=== PATIENT | female | born 1965 | race Caucasian/White ===

== ENCOUNTER 2017-06-05 19:43 | Inpatient (IN) | payer BC ==
[~2017-06-05] VITALS: Ht 167.6 cm; Wt 67.8 kg
[2017-06-05 20:12] LABS: HEMATOCRIT 36.4 % (36.0-46.0); MCHC 35.2 G/DL (30.0-36.0); MCV 93.8 FL (83-99); MEAN PLAT.VOLUME 10.1 uM^3 (9.5-12.4); PLATELET COUNT 278 K/uL (156-360); RBC DIS.WIDTH-CV 12.3 % (11.8-14.6); RBC DIS.WIDTH-SD 42.7 % (39-53); RED BLOOD COUNT 3.88 M/uL (3.80-5.20); WHITE BLOOD COUNT 7.9 K/uL (4.1-10.2)
[2017-06-05 20:24] LABS: CHLORIDE 106 mEq/L (99-109); POTASSIUM 3.5 mEq/L (3.7-5.4); SODIUM 138 mEq/L (136-147)
[2017-06-05 20:26] LABS: GLUCOSE 92 mg/dL (70-99)
[2017-06-05 20:27] LABS: ANION GAP 6 MEQ/L (2-14)
[2017-06-05 20:30] LABS: GFR ESTIMATE (CALCULATED) > 59 mL/min/
[2017-06-05 20:31] LABS: UREA NITROGEN (BUN) 15 mg/dL (9-23)
[2017-06-05 23:39] LABS: SERUM ETHYL ALCOHOL < 10 mg/dL
[2017-06-05 23:43] LABS: SALICYLATE < 5.0 MG/DL (15-30)
[2017-06-06] VITALS (8 sets, daily range): BP systolic 106–121; BP diastolic 56–70
[2017-06-06 01:29] LABS: ADD MIUA? YES; BILIRUBIN NEGATIVE; BLOOD NEGATIVE; COLOR YELLOW ((YELLOW)); GLUCOSE (STRIP) NEGATIVE; KETONES NEGATIVE; LEUKOCYTES TRACE; NITRITE NEGATIVE; PROTEIN (STRIP) NEGATIVE; SPECIFIC GRAVITY 1.024 (1.000-1.030); UROBILINOGEN 0.2 MG/DL (0.2-1.0)
[2017-06-06 01:31] LABS: BACTERIA RARE /HPF; EPITHELIAL CELLS RARE /HPF; MUCUS 2+ /LPF; RED BLOOD CELLS 0-5 /HPF (0-5); UCUL ADDED? NO; WHITE BLOOD CELLS 0-5 /HPF (0-5)
[2017-06-06 01:37] LABS: AMPHETAMINE PRESUMPTIVE POSITIVE (500 ng/mL); BARBITURATES NEGATIVE (200 ng/mL); BENZODIAZEPINES NEGATIVE (150 ng/mL); COCAINE NEGATIVE (150 ng/mL); INTERNAL CONTROLS VALID? YES; METHADONE NEGATIVE (200 ng/mL); METHAMPHETAMINE NEGATIVE (500 ng/mL); OPIATES (MORPHINE) NEGATIVE (100 ng/mL); OXYCODONE NEGATIVE (100 ng/mL); PHENCYCLIDINE NEGATIVE (25 ng/mL); PROPOXYPHENE NEGATIVE (300 ng/mL); THC CANNABINOIDS NEGATIVE (50 ng/mL); TRICYCLIC ANTIDEPRESSANTS NEGATIVE (300 ng/mL)
[2017-06-06 01:38] LABS: ADD MEDTOX COMMENT Y
[2017-06-06 12:48] LABS: Estimated Average Glucose 108 mg/dL (70-123); HEMOGLOBIN A1c (GLYCOHEMOGLOB) 5.4 % HGB (Below 5.7)
[2017-06-06 13:30] LABS: HDL CHOLESTEROL 57 MG/DL (Desirable>=50); LDL CHOLESTEROL 74 mg/dL (Desirable<100); NON-HDL CHOLESTEROL 89 mg/dL (Desirable<160); TOTAL CHOLESTEROL 146 mg/dL (Desirable<200); TRIGLYCERIDES 73 MG/DL (Normal: <150)
[2017-06-06] MEDS ORDERED: RIZATRIPTAN10 MG PO (16:37)
[2017-06-06] MEDS ORDERED: VYVANSE70 MG PO (16:38)
[2017-06-06] MEDS ORDERED: VALACYCLOVIR500 MG PO (16:38)
[2017-06-06] MEDS ORDERED: BUPROPION HCL150 M2 PO (16:39)
[2017-06-06] MEDS ORDERED: buspar PO (16:42)
[2017-06-06] MEDS ORDERED: LEXAPRO20 MG PO (16:44)
[2017-06-06] MEDS ORDERED: INDOCIN25 MG PO (16:44)
[2017-06-06] MEDS ORDERED: ALYACEN1 EACH PO (16:45)
[2017-06-06] MEDS ORDERED: VITAMIN E400 UNIT PO (16:45)
[2017-06-06] MEDS ORDERED: ZANTAC150 MG PO (16:46)
[2017-06-06] MEDS ORDERED: BENADRYL25 MG PO (16:46)
[2017-06-07 03:45] VITALS: BP 119/58
[2017-06-07 06:22] LABS: HEMATOCRIT 37.8 % (36.0-46.0); MCH 31.6 PG (29.0-34.0); MCHC 33.1 G/DL (30.0-36.0); MCV 95.5 FL (83-99); MEAN PLAT.VOLUME 10.3 uM^3 (9.5-12.4); PLATELET COUNT 272 K/uL (156-360); RBC DIS.WIDTH-CV 12.4 % (11.8-14.6); RBC DIS.WIDTH-SD 43.5 % (39-53); RED BLOOD COUNT 3.96 M/uL (3.80-5.20); WHITE BLOOD COUNT 4.6 K/uL (4.1-10.2)
[2017-06-07 06:48] LABS: ANION GAP 6 MEQ/L (2-14); CHLORIDE 107 MEQ/L (99-109); GFR ESTIMATE (CALCULATED) > 59 mL/min/; GLUCOSE 106 mg/dL (70-99); POTASSIUM 4.3 MEQ/L (3.7-5.4); SAMPLE HEMOLYSIS CHECK 0; SAMPLE ICTERIC CHECK 0; SAMPLE LIPEMIA CHECK 0; SODIUM 139 MEQ/L (136-147); UREA NITROGEN (BUN) 9 mg/dL (9-23)
[2017-06-07 07:51] VITALS: BP 124/66
[2017-06-07 12:10] VITALS: BP 120/65
[2017-06-07 15:51] VITALS: BP 126/60
[2017-06-07 19:20] VITALS: BP 117/73
[2017-06-08 00:11] VITALS: BP 105/58
[2017-06-08 04:23] VITALS: BP 114/70
[2017-06-08 07:23] VITALS: BP 117/63
[2017-06-08 11:14] VITALS: BP 123/65
[2017-06-08] MEDS ORDERED: ASPIR 8181 M1 PO (14:06)
[2017-06-08] MEDS ORDERED: LIPITOR20 MG PO (14:07)
== END 2017-06-08 15:25 | disposition home or self-care (01) | DRG 65 ==
LOC: EME 19:43 → EDOF 06-06 00:51 → ENRESERV 06-06 00:51 → 5WEST 06-06 01:27 → 5SOUTH 06-06 10:26 → ENRESERV 06-06 10:33 → 5SOUTH 06-06 16:21
PROVIDERS: Emergency Medicine; Hospitalist; Specialist
DX: I63.8 Other cerebral infarction (principal); F05 Delirium due to known physiological condition; F33.9 Major depressive disorder, recurrent, unspecified; G47.10 Hypersomnia, unspecified; E87.6 Hypokalemia; A60.00 Herpesviral infection of urogenital system, unspecified; Z80.0 Family history of malignant neoplasm of digestive organs; Z79.82 Long term (current) use of aspirin
CPT/HCPCS: 70450; 70551; 71020; 80048; 80061; 81003; 81240 90; 82010; 83036; 83090 90; 84999; 85027; 85240 90; 85300 90; 85303 90; 85305 90; 85306 90; 85613 90; 85730 90; 86146 90; 86147 90; 93005; 93306; 99281; 99285; G0480; J0696; J1644; J7030

== ENCOUNTER → 2017-08-11 | Outpatient (CLI) | payer BC ==
[~2017-08-11] VITALS: Ht 167.6 cm; Wt 60.3 kg
[~2017-08-11] MED LIST: ALYACEN1 EACH PO; ASPIR 8181 M1 PO; BENADRYL25 MG PO; BUPROPION HCL150 M2 PO; BUSPAR30 MG PO; INDOCIN25 MG PO; IRON159 MG PO; LEXAPRO20 MG PO; LIPITOR20 MG PO; LO-DOSE ASPIRIN81 M1 PO; MAXALT10 MG PO; RIZATRIPTAN10 MG PO; VALACYCLOVIR500 MG PO; VITAMIN E400 UNIT PO; VYVANSE70 MG PO; ZANTAC150 MG PO; buspar PO
== END | disposition home or self-care (01) ==
LOC: AMB 09:37
PROC: B246ZZ4 Ultrasonography of Right and Left Heart, Transesophageal (ICD-10-PCS; principal; 2017-08-11)
DX: I63.9 Cerebral infarction, unspecified (principal)
CPT/HCPCS: 93312; J2250